=== PATIENT | male | born 1990 | race Caucasian/White ===

== ENCOUNTER 2018-10-12 03:39 | Emergency (ER) | payer OTHER, SELFPAY ==
[2018-10-12] VITALS (7 sets, daily range): BP systolic 116–142; BP diastolic 59–83; PULSE 69–88; RESP 12–24; TEMP 36.9; O2SAT 96–100; BMI 36.2
--- NOTE | 2018-10-12 03:45 | DI.RAD.S_ITS ---
PROCEDURE: XR CHEST 1V INDICATIONS: Chest pain TECHNIQUE: One view of the chest was acquired. COMPARISON: None. FINDINGS: Surgical changes and devices: None. Lungs and pleura: Lungs are clear. No pleural effusions or pneumothorax. Mediastinum: Mediastinal contours appear normal. Heart size is normal. Bones and chest wall: No suspicious bony lesions. Overlying soft tissues appear unremarkable. IMPRESSION: No acute cardiopulmonary process is evident. Note: The preliminary ED findings and the final radiology report are concordant. Dictated by: Robin Betancourt M.D. on 10/12/2018 at 7:05 Approved by: Robin Betancourt M.D. on 10/12/2018 at 7:06
--- NOTE | 2018-10-12 03:53 | ED.GENADULT ---
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 Patient states that on Sunday of this week he had vague pain where he states that he hurt from his waist to his head. No specific chest pain or shortness of breath. States that overall he did not feel very well. This continued until where he actually left work early because of the symptoms. He states that he went to bed night and woke up Sunday morning feeling well. He states that last evening approximately 2000 hours he started having chest discomfort and headache and shortness of breath. He states the symptoms were different from the symptoms he was having earlier this week. He did recently have a flight from [place] back to this area. No lower extremity swelling. Has not tried anything for symptoms prior to arrival. He has had back pain over the past couple days as well. This is not new for him. He attributed the chest discomfort as a extension of his back pain however when he took ibuprofen his back pain improved but his chest pain did not. Related Data Home Medications Medication Instructions Recorded Confirmed No Known Home Medications 10/12/18 10/12/18 Allergies Allergy/AdvReac Type Severity Reaction Status Date / Time shellfish derived Allergy Verified 10/12/18 05:13 Review of Systems Constitutional Denies fever(s) and Denies headache(s) ENT Ears, Nose, Mouth, and Throat: Denies headache(s) Cardiovascular Reports chest pain, Denies leg edema, Denies palpitations, Reports dyspnea and Reports dyspnea on exertion Respiratory Reports cough, Reports dyspnea and Reports dyspnea on exertion Gastrointestinal Gastrointestinal: Denies abdominal pain, Denies nausea and Denies vomiting Integumentary/Breasts Denies lesions and Denies rash Neurologic Denies behavioral changes and Denies headache(s) Psychiatric Denies behavioral changes Endocrine Denies palpitations Hematologic/Lymphatic Denies easy bleeding and Denies easy bruising [facility] Medical History Patient denies medical problems (Acute) Surgical History No pertinent past surgical history (Acute) Social History marital status: caregiver/support person: Yes Exam Initial Vital Signs Initial Vital Signs: Vital Signs Temperature 98.5 F 10/12/18 03:43 Pulse Rate 88 10/12/18 03:43 Respiratory Rate 18 10/12/18 03:43 Blood Pressure 142/83 H 10/12/18 03:43 Pulse Oximetry 98 10/12/18 03:43 Const General: cooperative, comfortable, well developed, well groomed and No acute distress Orientation: alert, awake and oriented x3 HENMT Head: normal to inspection and normocephalic Resp Effort & Inspection: normal respiratory effort Auscultation: clear to auscultation bilaterally Cardio Rate: regular rate Rhythm: regular rhythm Pulses: radial pulses present GI Inspection: non-distended Palpation: soft Skin Lesions: no lesions Rashes: no rashes Neuro General: alert, awake and oriented x3 Cognition: normal cognition Speech: speech normal Gait: normal gait Extrem General: normal to inspection and capillary refill normal Psych Appearance: grossly normal and well kempt Scores GCS Donnell coma scale eye opening: Spontaneous Donnell coma scale verbal response: Orientated [place] coma scale motor response: Obey commands Donnell coma scale total score: 15 HEART Score Heart Score history: Slightly Suspicious Heart Score EKG: Normal Heart Score Age: < 45 years old Heart Score risk factors: No known risk factors Heart Score troponin: 1-3 times normal limit Heart Score Total: 1 PERC Score Age greater than or equal to 50 years: No Heart rate greater than or equal to 100 bpm: No Room Air O2 Sat less than 95%: No Unilateral leg swelling: No Recent trauma or surgery: No Hemoptysis: No Prior PE or DVT: No Hormone Use: No Total PERC Score: 0 Wells' Criteria for PE Clinical signs and symptoms of PE: Yes PE is #1 Dx or equally likely: Yes Heart rate > 100: No Immobilization at least 3 days or surg in previous 4 weeks: No History of PE or DVT: No Hemoptysis: No Malignancy w/Treatment within 6 months or palliative: No Wells' PE Score total: 6 Course Orders Ordered: ED Orders 10/12/18 03:45 XR chest 1V Stat EKG-12 Lead Stat 10/12/18 04:18 B Type Natriuretic Peptide Stat Basic Metabolic Panel Stat C-Reactive Protein Quant Stat CKMB Panel (CK + CKMB) Stat Complete Blood Count AUTO DIFF Stat D Dimer Stat Erythrocyte Sedimentation Rate Stat Partial Thromboplastin Time Stat Prothrombin Time INR Stat Troponin I Stat 10/12/18 04:44 CT angio chest PE protocol Stat Heparin Sodium/Dextrose (Heparin Drip) 25,000 unit in 500 mls @ 20 mls/hr IV CONT NIKITA; Protocol Last Admin: 10/12/18 06:32 Dose: 1,000 units/hr, 20 mls/hr Discontinued Medications Aspirin (Aspirin Chew) 324 mg PO NOW ONE Stop: 10/12/18 05:34 Last Admin: 10/12/18 05:39 Dose: 324 mg Heparin Sodium (Porcine) (Heparin) 5,000 unit IV NOW ONE Stop: 10/12/18 05:47 Last Admin: 10/12/18 06:32 Dose: 5,000 unit Sodium Chloride (Normal Saline 0.9%) 1,000 mls @ 1,000 mls/hr IV BOLUS ONE Stop: 10/12/18 05:43 Last Infusion: 10/12/18 06:05 Dose: 0 mls/hr Admin: 10/12/18 05:05 Dose: 1,000 mls/hr Vital Signs - 8 hr 10/12/18 03:43 10/12/18 05:17 10/12/18 07:10 Temperature 98.5 F Pulse Rate 88 77 78 Respiratory Rate 18 15 18 Blood Pressure 142/83 H Blood Pressure [Left Arm] 136/78 136/73 Pulse Oximetry 98 96 99 10/12/18 07:30 Temperature Pulse Rate 88 Respiratory Rate 22 Blood Pressure Blood Pressure [Left Arm] 120/72 Pulse Oximetry 100 Medical Decision Making Lab Data Lab results reviewed: Yes I reviewed the patient's lab results. Result diagrams: 10/12/18 04:18 10/12/18 04:18 Lab Results 10/12/18 10/12/18 10/12/18 Range/Units 04:18 04:18 04:18 WBC 5.6 (4.5-11.0) X10^3/uL RBC 5.01 (4.5-5.9) X10^6/uL Hgb 14.8 (13.5-17.5) g/dL Hct 43.1 (41-53) % MCV 86.0 (80-100) fL MCH 29.5 (26-34) PG MCHC 34.3 (30-36) % RDW 13.4 (11.6-14.8) % Plt Count 152 (150-400) X10^3/uL Neut % (Auto) 79.8 H (50-75) % Lymph % (Auto) 9.6 L (25-40) % Bracken % (Auto) 10.1 (3-14) % Eos % (Auto) 0.2 L (2-4) % Baso % (Auto) 0.3 (0-2) % Neut # (Auto) 4500 (9090-5745) /uL Lymph # (Auto) 500 L (6608-4478) /uL Bracken # (Auto) 600 (0-900) /uL Eos # (Auto) 0 (0-450) /uL Baso # (Auto) 0 (0-100) /uL ESR (0-15) MM/HR PT (10.1-12.7) SECONDS INR (0.9-1.3) APTT (26.4-36.2) SECONDS D-Dimer 742 H (<230) ng/mL Sodium 136 L (137-145) mmol/L Potassium 4.5 (3.4-5.1) mmol/L Chloride 100 (98-107) mmol/L Carbon Dioxide 29 (22-32) mmol/L BUN 10 (9-20) mg/dL Creatinine 0.90 (0.66-1.25) mg/dL Estimated GFR > 60.0 (>60) mL/min BUN/Creatinine Ratio 11.1 (6-22) Glucose 131 H (70-100) mg/dL Calcium 9.1 (8.4-10.2) mg/dL Total Creatine Kinase (55-170) U/L CK-MB (CK-2) (<2.37) ng/mL CK-MB (CK-2) Rel Index (1.5-5.0) % Troponin I 1.580 H* (0.01-0.034) ng/mL C-Reactive Protein (<1.0) mg/dL B-Natriuretic Peptide (<100) 10/12/18 10/12/18 10/12/18 Range/Units 04:18 04:18 04:18 WBC (4.5-11.0) X10^3/uL RBC (4.5-5.9) X10^6/uL Hgb (13.5-17.5) g/dL Hct (41-53) % MCV (80-100) fL MCH (26-34) PG MCHC (30-36) % RDW (11.6-14.8) % Plt Count (150-400) X10^3/uL Neut % (Auto) (50-75) % Lymph % (Auto) (25-40) % Bracken % (Auto) (3-14) % Eos % (Auto) (2-4) % Baso % (Auto) (0-2) % Neut # (Auto) (8496-3567) /uL Lymph # (Auto) (2988-5960) /uL Bracken # (Auto) (0-900) /uL Eos # (Auto) (0-450) /uL Baso # (Auto) (0-100) /uL ESR 13 (0-15) MM/HR PT (10.1-12.7) SECONDS INR (0.9-1.3) APTT (26.4-36.2) SECONDS D-Dimer (<230) ng/mL Sodium (137-145) mmol/L Potassium (3.4-5.1) mmol/L Chloride (98-107) mmol/L Carbon Dioxide (22-32) mmol/L BUN (9-20) mg/dL Creatinine (0.66-1.25) mg/dL Estimated GFR (>60) mL/min BUN/Creatinine Ratio (6-22) Glucose (70-100) mg/dL Calcium (8.4-10.2) mg/dL Total Creatine Kinase 167 (55-170) U/L CK-MB (CK-2) 6.71 H (<2.37) ng/mL CK-MB (CK-2) Rel Index 4.0 (1.5-5.0) % Troponin I Cancelled (0.01-0.034) ng/mL C-Reactive Protein (<1.0) mg/dL B-Natriuretic Peptide < 100 (<100) 10/12/18 10/12/18 Range/Units 04:18 04:18 WBC (4.5-11.0) X10^3/uL RBC (4.5-5.9) X10^6/uL Hgb (13.5-17.5) g/dL Hct (41-53) % MCV (80-100) fL MCH (26-34) PG MCHC (30-36) % RDW (11.6-14.8) % Plt Count (150-400) X10^3/uL Neut % (Auto) (50-75) % Lymph % (Auto) (25-40) % Bracken % (Auto) (3-14) % Eos % (Auto) (2-4) % Baso % (Auto) (0-2) % Neut # (Auto) (6717-7396) /uL Lymph # (Auto) (8281-5349) /uL Bracken # (Auto) (0-900) /uL Eos # (Auto) (0-450) /uL Baso # (Auto) (0-100) /uL ESR (0-15) MM/HR PT 12.3 (10.1-12.7) SECONDS INR 1.1 (0.9-1.3) APTT 31 (26.4-36.2) SECONDS D-Dimer (<230) ng/mL Sodium (137-145) mmol/L Potassium (3.4-5.1) mmol/L Chloride (98-107) mmol/L Carbon Dioxide (22-32) mmol/L BUN (9-20) mg/dL Creatinine (0.66-1.25) mg/dL Estimated GFR (>60) mL/min BUN/Creatinine Ratio (6-22) Glucose (70-100) mg/dL Calcium (8.4-10.2) mg/dL Total Creatine Kinase (55-170) U/L CK-MB (CK-2) (<2.37) ng/mL CK-MB (CK-2) Rel Index (1.5-5.0) % Troponin I (0.01-0.034) ng/mL C-Reactive Protein 12.4 H (<1.0) mg/dL B-Natriuretic Peptide (<100) Imaging Data Chest x-ray: Attestation: I personally reviewed and interpreted this imaging study as follows: My impression: No pneumonia Normal size heart No acute changes CTA of the chest: Radiologist's impression: Unremarkable CT pulmonary angiogram. No acute intrathoracic abnormality identified. ECG Data Attestation: I personally reviewed and interpreted this ECG as follows: Prior ECG tracings: not available for review Interpretation: Sinus rhythm Ventricular rate 80 Left axis deviation Normal QRS Normal QTC No ST T wave changes MDM Narrative Medical decision making narrative: Patient is an unremarkable EKG. Unremarkable chest x-ray. Unremarkable CT a the chest. Does have a elevated troponin. Patient is low risk for ACS. He does have an elevated CRP but an unremarkable ESR. He was given an aspirin here in the emergency department. I did discuss the case with Dr. Case with Cardiology. He agreed that the patient is low risk for ACS however he is high risk for other etiologies such as pericarditis/myocarditis given his current cough and shortness of breath and vague malaise and upper body aches over the past couple days. He did agree with starting the patient on heparin. Held on any antibiotics for now. Discussed the case with Dr. Roman at [facility] who talked with the fish house worker who states they do not have any bed availability. Care turned over to Dr. Bellamy a change of shift for continued disposition. Discharge Plan Departure Patient Disposition: [facility] Clinical Impression: Elevated troponin Chest pain Qualifiers: Chest pain type: unspecified Qualified Code(s): R07.9 - Chest pain, unspecified Prescriptions: No Action No Known Home Medications RF: 0
[2018-10-12 04:28] LABS: Add Manual Diff / Slide Review NO; Basophils Absolute Auto 0 /uL (0-100); Basophils Percent Auto 0.3 % (0-2); Eosinophils Absolute Auto 0 /uL (0-450); Eosinophils Percent Auto 0.2 % (2-4); Hematocrit 43.1 % (41-53); Hemoglobin 14.8 g/dL (13.5-17.5); Lymphocytes Absolute Auto 500 /uL (1100-4500); Lymphocytes Percent Auto 9.6 % (25-40); Mean Corpuscular HGB Conc 34.3 % (30-36); Mean Corpuscular Hemoglobin 29.5 PG (26-34); Monocytes Absolute Auto 600 /uL (0-900); Monocytes Percent Auto 10.1 % (3-14); Neutrophils Absolute Auto 4500 /uL (1500-7000); Neutrophils Percent Auto 79.8 % (50-75); Platelet Count 152 X10^3/uL (150-400); Red Blood Cell Count 5.01 X10^6/uL (4.5-5.9); Red Cell Distribution Width 13.4 % (11.6-14.8); White Blood Cell Count 5.6 X10^3/uL (4.5-11.0)
[2018-10-12 04:37] LABS: BUN Creatinine Ratio 11.1 (6-22); Blood Urea Nitrogen 10 mg/dL (9-20); Calcium 9.1 mg/dL (8.4-10.2); Carbon Dioxide 29 mmol/L (22-32); Chloride 100 mmol/L (98-107); D Dimer 742 ng/mL (<230); Estimated Glomerular Filt Rate > 60.0 mL/min (>60); Glucose 131 mg/dL (70-100); HEMOLYSIS 22 (0-50); Potassium 4.5 mmol/L (3.4-5.1); Sodium 136 mmol/L (137-145)
--- NOTE | 2018-10-12 04:44 | DI.CT.S_ITS ---
PROCEDURE: CT ANGIO CHEST PE PROTOCOL INDICATIONS: Chest pain, shortness of breath TECHNIQUE: After the administration of intravenous contrast, 2 mm thick sections acquired from the pulmonary apices to the posterior costophrenic angles. 3-dimensional maximum intensity projection (MIP) coronal and sagittal reformats were then acquired through the thorax. For radiation dose reduction, the following was used: automated exposure control, adjustment of mA and/or kV according to patient size. COMPARISON: None. FINDINGS: Image quality: Diagnostic. Pulmonary arteries: Pulmonary arteries are normal in size, and demonstrate no intraluminal filling defects to suggest central pulmonary embolism. Lungs and pleura: Mild atelectasis is present within the bilateral lung bases. There is slight bronchial wall thickening involving the bilateral infrahilar bronchi within the bilateral lower lobes. No focal consolidation, effusion, or pneumothorax is evident. No lung mass or definite pulmonary nodule is evident. Mediastinum: Heart size is normal, without pericardial effusion. No mediastinal or hilar adenopathy. Thoracic aorta is normal in caliber and enhancement. Esophagus is normal in caliber, without hiatal hernia. Bones and chest wall: No suspicious bony lesions. Ribs and thoracic spine appear intact throughout. There may be minimal bilateral mild gynecomastia. Thyroid gland is not enlarged or adequately evaluated. No axillary or supraclavicular adenopathy. Abdomen: The included portions of the upper abdomen are unremarkable with the exception of slight hypodensity of the liver when compared to the spleen. IMPRESSION: 1. No evidence of pulmonary emboli. 2. Possible mild infrahilar bronchitis and mild atelectasis. No classic pneumonia is evident. 3. Questionable mild hepatic steatosis. Note: The preliminary [facility] report and the final report are concordant. Dictated by: Robin Betancourt M.D. on 10/12/2018 at 7:06 Approved by: oRbin Betancourt M.D. on 10/12/2018 at 7:09
[2018-10-12] MEDS: SODIUM CHLORIDE 0.9% 1,000 ML 1000 ML IV (05:05)
[2018-10-12 05:29] LABS: B Type Natriuretic Peptide < 100 (<100)
[2018-10-12] MEDS: ASPIRIN 81 MG TAB 324 MG PO (05:39)
[2018-10-12 06:06] LABS: INR 1.1 (0.9-1.3); Prothrombin Time 12.3 SECONDS (10.1-12.7)
[2018-10-12 06:09] LABS: Creatine Kinase 167 U/L (55-170); PTT Partial Thromboplastin Tim 31 SECONDS (26.4-36.2)
[2018-10-12 06:22] LABS: Erythrocyte Sedimentation Rate 13 MM/HR (0-15)
[2018-10-12 06:23] LABS: C-Reactive Protein Quant 12.4 mg/dL (<1.0)
[2018-10-12 06:25] LABS: Creatine Kinase MB 6.71 ng/mL (<2.37)
[2018-10-12] MEDS: HEPARIN 5,000 UNIT/ML VIAL 5000 UNIT IV (06:32)
[2018-10-12] MEDS: HEPARIN DRIP 25,000 UNIT/500 ML IV.SOLN 20 UNIT IV (06:32)
[2018-10-12] MEDS: ACETAMINOPHEN 325 MG TABLET 975 MG PO (08:25)
--- NOTE | 2018-10-12 09:30 | PC.NURSE ---
Transferred pt to [facility] with Heparin running at 20mls/hr.
== END 2018-10-12 09:23 | disposition short-term general hospital (02) ==
PROVIDERS: Emergency Provider Emergency Medicine
DX: R07.9 Chest pain, unspecified (principal); R74.8 Abnormal levels of other serum enzymes; R06.02 Shortness of breath
CPT/HCPCS: 36591; 71045; 71275; 80048; 82550; 82553; 83880; 84484; 85025; 85379; 85610; 85651; 85730; 86140; 93005; 96361; 96365; 96366; 96375; 99285; J1644; Q9967